=== PATIENT | male | born 1950 | race Caucasian/White ===

== ENCOUNTER 2020-03-24 18:03 | Emergency (ER) | payer MEDICARE, MEDICAID ==
[2020-03-24 18:35] VITALS: BP 104/65; PULSE 70
--- NOTE | 2020-03-24 18:41 | EDM.PDOC ---
<YaDaniel Pilo - Last Filed: 03/24/20 19:57> ED HPI GENERAL MEDICAL PROBLEM - General Chief Complaint: Headache Stated Complaint: Lightheaded Time Seen by Provider: 03/24/20 18:25 Source of Information: Reports: Patient History Limitations: Reports: No Limitations - History of Present Illness INITIAL COMMENTS - FREE TEXT/NARRATIVE: Patient is a 70 year old male who presents to the ED brought in by EMS. His girlfriend called the ambulance. He reports feeling dizzy with a headache. Headache currently rated 6-7/10 and located on the top of the head, was previously at a 9/10 earlier today but he took some Tylenol and the pain improved. Dizziness described more as lightheadedness. This has been developing over the last several days. He relates it to not eating much lately. Had some hashbrowns Sunday, split a steak with his dog yesterday, and has had nothing to eat today. He is cared for by his girlfriend who he reports is an alcoholic. Patient was recently a resident at [facility] but left there on December 23. He is disabled and uses a wheelchair at home, reports he is able to walk but has been lazy about it lately. Denies any alcohol use himself, smokes 6-7 cigarettes per day. Patient has some chronic issues with urine incontinence related to his disability. Denies any other symptoms. Requesting some food. Head Pain Score (Numeric/FACES): 7 - Related Data Allergies Allergy/AdvReac Type Severity Reaction Status Date / Time No Known Allergies Allergy Verified 10/22/13 10:29 Home Meds: Home Meds Aspirin [Children's Aspirin] 325 mg PO DAILY 10/22/13 [History] Ibuprofen 800 mg PO QID 10/22/13 [History] Naproxen 500 mg PO BID 10/22/13 [History] PARoxetine HCl [Paroxetine HCl] 30 mg PO DAILY 10/22/13 [History] propylthiouraciL [Propylthiouracil] 50 mg PO BID 10/22/13 [History] Cyclobenzaprine [Flexeril] 10 mg PO DAILY 08/25/15 [History] Hydrocodone/Acetaminophen [Hydrocodon-Acetaminophen 5-325] 1 each PO TID PRN 08/25/15 [History] Past Medical History Cardiovascular History: Reports: PR Gastrointestinal History: Reports: GERD Genitourinary History: Reports: Urinary Incontinence Musculoskeletal History: Reports: Arthritis, Back Pain, Chronic, Osteoarthritis Neurological History: Reports: Head Trauma Psychiatric History: Reports: Anxiety, Depression Endocrine/Metabolic History: Reports: Hyperthyroidism - Infectious Disease History Infectious Disease History: Reports: Chicken Pox - Past Surgical History Neurological Surgical History: Reports: Laminectomy, Lumbar Spine Musculoskeletal Surgical History: Reports: Arthroscopic Knee Social & Family History - Family History Family Medical History: Noncontributory Endocrine/Metabolic: Reports: Diabetes, type II - Caffeine Use Caffeine Use: Reports: Coffee - Living Situation & Occupation Living situation: Reports: , with Significant Other Occupation: Disabled ED ROS GENERAL - Review of Systems Review Of Systems: See Below Constitutional: Denies: Fever, Chills HEENT: Denies: Rhinitis, Throat Pain, Vision Change Respiratory: Denies: Shortness of Breath, Cough Cardiovascular: Reports: Lightheadedness. Denies: Chest Pain Endocrine: Reports: Fatigue GI/Abdominal: Denies: Abdominal Pain, Constipation, Diarrhea : Reports: Incontinence Skin: Denies: Rash Neurological: Reports: Headache, Difficulty Walking ED EXAM, DIZZINESS - Physical Exam Exam: See Below Exam Limited By: No Limitations General Appearance: Alert, WD/WN, No Apparent Distress Eye Exam: Bilateral Eye: EOMI, Normal Inspection, PERRL Ears: Normal External Exam, Hearing Grossly Normal Nose: Normal Inspection Head Exam: Atraumatic, Normocephalic Neck: Normal Inspection, Supple, Non-Tender Respiratory/Chest: No Respiratory Distress, Lungs Clear, Normal Breath Sounds, No Accessory Muscle Use. No: Rales, Rhonchi, Wheezing Cardiovascular: Normal Peripheral Pulses, Regular Rate, Rhythm, No Edema GI/Abdominal: Normal Bowel Sounds, Soft, Non-Tender, No Organomegaly, No Distention, No Mass Neurological: Alert, Normal Mood/Affect, Normal Dorsiflexion, CN II-XII Intact, Normal Plantar Flexion, No Motor/Sensory Deficits, Oriented x 3 Extremities: Normal Inspection, Non-Tender, No Pedal Edema Psychiatric: Normal Affect, Normal Mood Skin Exam: Warm, Dry Course - Re-Assessments/Exams Free Text/Narrative Re-Assessment/Exam: 03/24/20 19:11 Patient refused lab draw. Medic was able to bring him some food and water. He reports resolution of headache and dizziness/lightheadedness now after eating. Discussed social situation with patient, regarding his inability to care for himself. He is interested in changing his living situation. Discussed possibility of meal delivery, home health. He is interested in speaking with a drug abuse social worker. He feels like he's able to go home if someone can bring him his electric power chair. Given symptom resolution and absence of any red flag symptoms I am comfortable with discharge without any further workup. Patient given information regarding social work resources and encouraged to follow up with his primary provider. He is discharged home in stable condition. Departure - Departure Time of Disposition: 19:25 Disposition: Home, Self-Care 01 Condition: Good Clinical Impression: Lightheadedness Headache Qualifiers: Headache type: unspecified Headache chronicity pattern: acute headache Intractability: not intractable Qualified Code(s): R51 - Headache - Discharge Information *PRESCRIPTION DRUG MONITORING PROGRAM REVIEWED*: Not Applicable *COPY OF PRESCRIPTION DRUG MONITORING REPORT IN PATIENT CRISTIAN: Not Applicable Instructions: General Headache Without Cause, [id number] Referrals: Madelaine Berry MD [Primary Care Provider] - Forms: ED Department Discharge Sepsis Event Note (ED) - Evaluation Sepsis Screening Result: No Definite Risk <Kb Greenwood - Last Filed: 03/24/20 21:11> Course - Vital Signs Last Recorded V/S: Last Vital Signs Temp 35.8 C L 03/24/20 18:03 Pulse 70 03/24/20 18:03 Resp 16 03/24/20 18:03 BP 104/65 03/24/20 18:03 Pulse Ox 100 03/24/20 18:03 - Re-Assessments/Exams Free Text/Narrative Re-Assessment/Exam: 03/24/20 21:11 I have examined the patient. I have discussed findings and treatment plan with the resident. I agree with the assessment and plan in the following residents note. Sepsis Event Note (ED) - Focused Exam Vital Signs: Vital Signs Temp Pulse Resp BP Pulse Ox 03/24/20 18:03 35.8 C L 70 16 104/65 100
== END 2020-03-24 20:18 | disposition home or self-care (01) ==
LOC: DL.ED 18:03
DX: R42 Dizziness and giddiness (principal); R51 Headache; I25.2 Old myocardial infarction; F41.9 Anxiety disorder, unspecified; F32.9 Major depressive disorder, single episode, unspecified; M19.90 Unspecified osteoarthritis, unspecified site; Z79.82 Long term (current) use of aspirin; Z79.899 Other long term (current) drug therapy
CPT/HCPCS: 99284